=== PATIENT | female | born 2000 | race Caucasian/White ===

== ENCOUNTER 2025-05-31 09:38 | Emergency (ER) | payer OTHER, SELFPAY ==
[2025-05-31 09:47] VITALS: BP 131/81; PULSE 71; RESP 16; TEMP 36.3; O2SAT 97
[2025-05-31 10:27] VITALS: BP 131/81; PULSE 71; RESP 16; TEMP 36.3; O2SAT 97
[2025-05-31 10:31] LABS: Glucose Negative (Negative)
[2025-05-31 10:43] LABS: C & S Indicated? No; WBC 0-2 HPF (0-5)
[2025-05-31 10:53] LABS: Anion Gap 9.7 mmol/L (3-11); BUN 11 mg/dL (7-18); CO2 29.3 mmol/L (21.0-32.0); Calcium 9.7 mg/dL (8.5-10.1); Chloride 104 mmol/L (98-107); Estimated GFR 122.25 (mL/min/1.73m2); Glucose 73 mg/dL (74-106); Potassium 3.7 mmol/L (3.5-5.1); Sodium 143 mmol/L (136-145)
--- NOTE | 2025-05-31 11:05 | W.ED.GENAD ---
Discharge Plan Disposition Patient Disposition: Home Discharge Details Clinical Impression: Elevated serum creatinine Primary Care Provider: Anika,Local ED Provider: Daphney Pak Discharge Instructions Additional Instructions: You presented today for evaluation of likely acute kidney injury in the setting of dehydration, your labs including creatinine and GFR look great today Your glucose level is ever so slightly below normal so I recommend having a meal or some calorie containing fluids when you leave Please be reevaluated at your routine appointment and make sure you stay hydrated with at least eight 8 ounce glasses of water HPI General Date/Time Provider Initiated Documentation: 05/31/25 10:03. HPI Narrative: 24-year-old female presents for evaluation of STONE. Routine labs showed STONE. She often forgets to consume water due to her busy schedule and wants labs rechecked. No fatigue, body aches, decreased urination, chance of , fever, chills, back pain, history of strep infections, or known tick bites. Urine is clear. Alert, oriented, in no acute distress, answers questions appropriately. Related Data Allergies Allergy/AdvReac Type Severity Reaction Status Date / Time neomycin AdvReac Intermediate Skin Rash Verified 05/31/25 09:50 General Stated Complaint: GenMedical MIMA: 4 Exam Narrative Exam Narrative: General Appearance: Alert, oriented, in no acute distress. Vital signs: Within normal limits. HEENT: Within normal limits. Respiratory: Within normal limits. Skin: Warm and dry, no rash. Neurological: Normal. Back, Musculoskeletal: No flank pain or suprapubic tenderness. Course Vital Signs Vital signs: Vital Signs Temperature 36.3 C L 05/31/25 09:47 Pulse 71 05/31/25 09:47 Respiratory Rate 16 05/31/25 09:47 Blood Pressure 131/81 05/31/25 09:47 Pulse Oximetry 97 05/31/25 09:47 Temperature 36.3 C L 05/31/25 10:27 Temperature Source Oral 05/31/25 10:27 Pulse 71 05/31/25 10:27 Respiratory Rate 16 05/31/25 10:27 Respiratory Effort Normal, Non-Labored 05/31/25 10:26 Respiratory Depth Normal 05/31/25 10:26 Respiratory Pattern Normal 05/31/25 10:26 Blood Pressure 131/81 05/31/25 10:27 Pulse Oximetry 97 05/31/25 10:27 Oxygen Delivery Method Room Air 05/31/25 10:27 Oxygen Flow Rate 0 05/31/25 10:27 Pain Level 0 05/31/25 10:27 Lab/Test Results Lab/Test Results: Laboratory Tests Range/Units 05/31/25 05/31/25 10:11 10:28 Sodium (136-145) mmol/L 143 Potassium (3.5-5.1) mmol/L 3.7 Chloride (98-107) mmol/L 104 Carbon Dioxide (21.0-32.0) mmol/L 29.3 Anion Gap (3-11) mmol/L 9.7 BUN (7-18) mg/dL 11 Creatinine (0.55-1.02) mg/dL 0.7 Est GFR (CKD-EPI 2020) (mL/min/1.73m2) 122.25 Glucose (74-106) mg/dL 73 L Calcium (8.5-10.1) mg/dL 9.7 Urine Color (Yellow) Yellow Urine Clarity (Clear) Clear Urine pH (5-8) 5.5 Ur Specific Phil Campbell (1.005-1.025) <= 1.005 Urine Protein (Neg-Trace) mg/dL Negative Urine Ketones (Negative) mg/dL Negative Urine Blood (Negative) Trace-lysed H Urine Nitrite (Negative) Negative Urine Bilirubin (Negative) Negative Urine Urobilinogen (Up to 0.2) mg/dL 0.2 Ur Leukocyte Esterase (Negative) Negative Urine RBC (0-2) HPF 3-5 H Urine WBC (0-5) HPF 0-2 Ur Epithelial Cells (Negative) HPF Negative Urine Crystals (Negative) HPF Negative Urine Bacteria (Negative) HPF Rare Urine Casts (Negative) LPF Negative Urine Mucus (Negative) Negative Ur Culture Indicated? No Urine Glucose (Negative) mg/dL Negative POC- Test(urine) Negative Medical Decision Making Initial Assessment: 24-year-old female on vacation, currently doing rotations for med school, routine labs showed STONE. Patient concerned due to often forgetting to consume water secondary to being busy. Denies fatigue, body aches, decreased urination, chance of , fever, chills, back pain, history of strep infections, or known tick bites. Urine is clear. Alert and oriented, in no acute distress, answering questions appropriately. ED Course: - Repeat BMP, urinalysis, and PSA to ensure lab values are not worsening. Creatinine and GFR 0.7 and 122 respectively negative Glucose 73 encouraged calorie supplementation and fluids regularly at home Term cautions reviewed and patient expressed understanding Final Assessment: Patient presented with concerns about STONE due to routine labs. Denies significant symptoms. Labs will be repeated to ensure values are not worsening. Clinical Impression: - STONE MDM Components Evaluation: - Number of Differential Diagnoses or Management Options: STONE - Amount and Complexity of Data Reviewed: BMP, urinalysis, PSA - Risk of Complication and Morbidity or Mortality: Low risk based on current presentation and lack of significant symptoms. PFSH All Active Problems (Updated 05/31/25 @ 11:04 by MEAGAN Walsh) Elevated serum creatinine (Acute) Social History Smoking/Tobacco Use Status: Never Smoking risk assessment performed?: Yes Alcohol Intake: current Alcohol Intake frequency: holidays/special occasions only Substance use type: does not use Housing: apartment Do you feel safe at home: Yes Do you feel safe in your relationship?: Yes
== END 2025-05-31 11:09 | disposition home or self-care (01) ==
PROVIDERS: Emergency Provider Physician Assistant
DX: R79.89 Other specified abnormal findings of blood chemistry (principal)
CPT/HCPCS: 99282 ×2; 81025; 80048; 81003; 81015